=== PATIENT | male | born 1940 | race Caucasian/White ===

== ENCOUNTER 2016-11-15 00:02 | Inpatient (IN) | payer MEDICARE ==
[~2016-11-15] VITALS: Ht 165.1 cm; Wt 88.1 kg
[2016-11-15] MEDS ORDERED: ASPIRIN 81MG TABLET PO ONE (01:00)
[2016-11-15 01:18] LABS: BASOPHILS % 0.6 % (0.0-2.0); EOSINOPHILS % 3.4 % (0.0-5.0); HEMATOCRIT. 30.4 % (42.0-52.0); HEMOGLOBIN. 10.3 g/dL (14.0-18.0); MEAN CORPUSCULAR VOLUME 94.4 fL (80.0-94.0); PLATELET 162 x1000/uL (130-400); RED BLOOD CELL COUNT 3.22 mill/uL (4.7-6.1)
[2016-11-15 01:29] LABS: D-DIMER 0.93 mg/L FEU (<0.50); INR 1.1; PARTIAL THROMBOPLASTIN TIME 25.1 sec (23.4-31.0); PROTHROMBIN TIME 11.1 sec (9.4-11.6)
[2016-11-15 01:34] LABS: CARBON DIOXIDE 24 mEq/L (21-32); CHLORIDE 107 mEq/L (98-107); ETHANOL BLOOD < 10 mg/dL; TROPONIN I < 0.02 ng/mL (0.00-0.04)
[2016-11-15 05:02] LABS: *AMPHETAMINES SCREEN URINE NEGATIVE (NEGATIVE); *BARBITURATES SCREEN URINE NEGATIVE (NEGATIVE); *BENZODIAZEPINES SCREEN URINE NEGATIVE (NEGATIVE); *COCAINE SCREEN URINE NEGATIVE (NEGATIVE); CANNABINOID URINE SCREEN NEGATIVE (NEGATIVE); METHADONE URINE SCREEN NEGATIVE (NEGATIVE); OPIATES URINE SCREEN NEGATIVE (NEGATIVE); PHENCYCLIDINE URINE SCREEN NEGATIVE (NEGATIVE)
[2016-11-15] MEDS ORDERED: CHOL100046 PO (11:11)
[2016-11-15] MEDS ORDERED: CARB200T PO (11:11)
[2016-11-15] MEDS ORDERED: DILT120C11 MT (11:11)
[2016-11-15] MEDS ORDERED: CLOP75TA16 PO (11:11)
[2016-11-15 11:30] VITALS: BP 165/93
[2016-11-15] MEDS ORDERED: ONDANSETRON HCL 4MG/2ML VIAL IV PRN (11:30)
[2016-11-15] MEDS ORDERED: IPRATROPIUM/ALBUTEROL 0.5-3(2.5)MG/3ML NEB INH PRN (11:30)
[2016-11-15] MEDS ORDERED: HYDROCODONE/ACETAMINOPHEN 5/325MG TABLET PO PRN (11:30)
[2016-11-15] MEDS ORDERED: ACETAMINOPHEN 325MG TABLET PO PRN (11:30)
[2016-11-15] MEDS ORDERED: LORAZEPAM 2MG/ML CPJ IV PRN (11:30)
[2016-11-15] MEDS ORDERED: MORPHINE SULFATE 4 MG/ML CPJ (NOT FOR IM USE) IV PRN (11:30)
[2016-11-15 12:00] VITALS: BP 165/93
[2016-11-15] MEDS ORDERED: CLONIDINE 0.1MG TABLET PO PRN (12:30)
[2016-11-15] MEDS: ENOXAPARIN 30MG/0.3ML SYR SUBCUT SCH (12:33)
[2016-11-15] MEDS: CLOPIDOGREL 75MG TABLET PO SCH (13:00)
[2016-11-15] MEDS ORDERED: LOSA25TA12 PO (13:43)
[2016-11-15] MEDS ORDERED: DOXA2TAB2 PO (13:43)
[2016-11-15] MEDS ORDERED: DOXA1TAB PO (13:46)
[2016-11-15] MEDS: LOSARTAN POTASSIUM 25 MG TABLET PO SCH (13:53)
[2016-11-15 14:44] LABS: CREATINE KINASE 90 IU/L (39-308); CREATINE KINASE MB FRACTION 1.6 ng/mL (0.5-3.6); PHOSPHORUS 3.6 mg/dL (2.5-4.9); TROPONIN I < 0.02 ng/mL (0.00-0.04)
[2016-11-15 16:45] VITALS: BP 166/83
[2016-11-15 20:00] VITALS: BP 142/76
[2016-11-15 23:29] LABS: CREATINE KINASE 100 IU/L (39-308)
[2016-11-15 23:30] LABS: CREATINE KINASE MB FRACTION 1.8 ng/mL (0.5-3.6); TROPONIN I < 0.02 ng/mL (0.00-0.04)
[2016-11-16 04:00] VITALS: BP 149/80
[2016-11-16 06:43] LABS: BASOPHILS % 0.3 % (0.0-2.0); EOSINOPHILS % 2.9 % (0.0-5.0); HEMATOCRIT. 32.7 % (42.0-52.0); HEMOGLOBIN. 11.1 g/dL (14.0-18.0); LYMPHOCYTES % 16.2 % (20.0-50.0); MEAN CORPUSCULAR HEMOGLOBIN 32.1 pg (28.0-32.0); MEAN CORPUSCULAR VOLUME 95.1 fL (80.0-94.0); MEAN PLATELET VOLUME 8.8 fl (7.4-10.4); NEUTROPHILS % 74.6 % (40.0-76.0); PLATELET 183 x1000/uL (130-400); RED BLOOD CELL COUNT 3.44 mill/uL (4.7-6.1); RED CELL DISTRIBUTION WIDTH 14.1 % (11.6-14.6)
[2016-11-16 07:25] LABS: PHOSPHORUS 3.4 mg/dL (2.5-4.9)
[2016-11-16 08:31] VITALS: BP 138/70
[2016-11-16] MEDS: CARBAMAZEPINE 200MG TABLET PO SCH (08:34)
[2016-11-16] MEDS: MULTIVITAMINS,THER W-MINERALS TABLET PO SCH (08:34)
[2016-11-16] MEDS: CLOPIDOGREL 75MG TABLET PO SCH (08:34)
[2016-11-16] MEDS: DILTIAZEM HCL 120MG CAPSULE CD 24HR PO SCH (08:35)
[2016-11-16] MEDS: LOSARTAN POTASSIUM 25 MG TABLET PO SCH (08:36)
[2016-11-16] MEDS: THIAMINE HCL 100MG TABLET PO SCH (08:37)
[2016-11-16] MEDS: ENOXAPARIN 30MG/0.3ML SYR SUBCUT SCH (08:37)
[2016-11-16 09:39] LABS: GLUCOSE URINE NEGATIVE (NEGATIVE); KETONES URINE NEGATIVE (NEGATIVE); LEUKOCYTE ESTERASE URINE NEGATIVE (NEGATIVE); NITRITE URINE NEGATIVE (NEGATIVE); OCCULT BLOOD URINE NEGATIVE (NEGATIVE); PH URINE 5.5 (4.5-8.0); PROTEIN URINE 2+ (NEGATIVE); SPECIFIC GRAVITY URINE 1.015 (1.005-1.030); UROBILINOGEN URINE 0.2 E.U./dL (0.2-1.0)
[2016-11-16 09:40] LABS: CLARITY URINE CLEAR (CLEAR); COLOR URINE YELLOW (YELLOW)
[2016-11-16 12:19] VITALS: BP 133/79
[2016-11-16] MEDS ORDERED: REGADENOSON 0.4 MG/5 ML IV NR (15:00)
[2016-11-16 16:17] VITALS: BP 142/85
[2016-11-16 20:33] LABS: T4 FREE 0.94 ng/dL (0.76-1.46)
[2016-11-16 23:51] VITALS: BP 148/75
[2016-11-17 04:13] VITALS: BP 148/83
[2016-11-17] MEDS ORDERED: ASPIRIN 81MG TABLET PO SCH (09:00)
[2016-11-17] MEDS ORDERED: REGADENOSON 0.4 MG/5 ML IV ONE (09:11)
[2016-11-17 09:50] VITALS: BP 159/89
[2016-11-17] MEDS: LOSARTAN POTASSIUM 25 MG TABLET PO SCH (10:04)
[2016-11-17] MEDS: CARBAMAZEPINE 200MG TABLET PO SCH (10:04)
[2016-11-17] MEDS: THIAMINE HCL 100MG TABLET PO SCH (10:04)
[2016-11-17] MEDS: DILTIAZEM HCL 120MG CAPSULE CD 24HR PO SCH (10:05)
[2016-11-17] MEDS: ENOXAPARIN 30MG/0.3ML SYR SUBCUT SCH (10:09)
[2016-11-17] MEDS: CLOPIDOGREL 75MG TABLET PO SCH (10:09)
[2016-11-17] MEDS: MULTIVITAMINS,THER W-MINERALS TABLET PO SCH (10:10)
[2016-11-17 12:00] VITALS: BP 135/71
[2016-11-17 15:03] VITALS: BP 132/75
== END 2016-11-17 15:35 | disposition home or self-care (01) | DRG 302 ==
LOC: ER 00:03 → 8WST 02:29 → ENRESERV 08:53
PROVIDERS: ADMIT Internal Medicine; ATTEND Internal Medicine
DX: I25.10 Atherosclerotic heart disease of native coronary artery without angina pectoris (principal); N17.1 Acute kidney failure with acute cortical necrosis; E11.22 Type 2 diabetes mellitus with diabetic chronic kidney disease; E66.01 Morbid (severe) obesity due to excess calories; C61 Malignant neoplasm of prostate; D64.9 Anemia, unspecified; E78.00 Pure hypercholesterolemia, unspecified; E78.5 Hyperlipidemia, unspecified; I12.9 Hypertensive chronic kidney disease with stage 1 through stage 4 chronic kidney disease, or unspecified chronic kidney disease; N18.9 Chronic kidney disease, unspecified; Z95.5 Presence of coronary angioplasty implant and graft; I25.2 Old myocardial infarction; Z88.0 Allergy status to penicillin; Z88.8 Allergy status to other drugs, medicaments and biological substances; Z68.32 Body mass index [BMI] 32.0-32.9, adult
CPT/HCPCS: 36415; 71010; 78452; 80048; 80053; 80061; 80305; 81001; 82040; 82550; 82553; 83036; 83690; 83735; 83880; 84100; 84439; 84443; 84484; 85025; 85379; 85610; 85730; 93005; 93017; 93306; 93970; 96372; 99285; A9500; G0482; J1650; J2785

== ENCOUNTER 2017-07-17 09:45 | Emergency (ER) | payer MEDICARE ==
[~2017-07-17] VITALS: Ht 165.1 cm; Wt 86.4 kg
[~2017-07-17 09:45] MED LIST: CALC0.253 PO; CARB200T PO; CHOL100046 PO; CLOP75TA16 PO; DILT120C11 MT; DOXA1TAB PO; LOSA25TA12 PO
[2017-07-17] MEDS ORDERED: CYCLOBENZAPRINE 10MG TABLET PO ONE (10:45)
[2017-07-17] MEDS ORDERED: KETOROLAC 60MG/2ML VIAL IM ONE (10:45)
[2017-07-17] MEDS ORDERED: MORPHINE SULFATE 10 MG/ML CPJ IM ONE (11:45)
[2017-07-17 11:52] LABS: HEMATOCRIT. 31.5 % (42.0-52.0); HEMOGLOBIN. 10.5 g/dL (14.0-18.0); MEAN CORPUSCULAR HEMOGLOBIN 31.8 pg (28.0-32.0); MEAN CORPUSCULAR VOLUME 95.9 fL (80.0-94.0); PLATELET 234 x1000/uL (130-400); RED BLOOD CELL COUNT 3.28 mill/uL (4.7-6.1); RED CELL DISTRIBUTION WIDTH 14.2 % (11.6-14.6)
[2017-07-17 11:59] LABS: CHLORIDE 108 mEq/L (98-107)
[2017-07-17 12:45] LABS: CLARITY URINE CLEAR (CLEAR); COLOR URINE YELLOW (YELLOW); KETONES URINE NEGATIVE (NEGATIVE); LEUKOCYTE ESTERASE URINE NEGATIVE (NEGATIVE); NITRITE URINE NEGATIVE (NEGATIVE); OCCULT BLOOD URINE TRACE (NEGATIVE); PROTEIN URINE 3+ (NEGATIVE); SPECIFIC GRAVITY URINE 1.013 (1.005-1.030); UROBILINOGEN URINE 0.2 E.U./dL (0.2-1.0)
[2017-07-17 12:51] LABS: PLATELET ESTIMATE NORMAL
[2017-07-17 14:27] VITALS: BP 131/74
== END 2017-07-17 14:28 | disposition home or self-care (01) ==
LOC: ER 09:45
DX: M54.5 Low back pain (principal); I25.2 Old myocardial infarction; Z88.5 Allergy status to narcotic agent; Z79.01 Long term (current) use of anticoagulants
CPT/HCPCS: 36415; 72131; 72148; 80053; 81003; 85025; 93005; 96372; 99285; J1885

== ENCOUNTER 2017-07-30 08:17 | Emergency (ER) | payer MEDICARE ==
[~2017-07-30] VITALS: Ht 165.1 cm; Wt 81.0 kg
[~2017-07-30 08:17] MED LIST changes: +DOXA1TAB2 PO; +LOVA10TA PO; +MULT-1146 PO
[2017-07-30 08:37] VITALS: BP 132/78
== END 2017-07-30 14:56 | disposition left against medical advice (07) ==
LOC: ER 10:00
DX: Z53.21 Procedure and treatment not carried out due to patient leaving prior to being seen by health care provider (principal)

== ENCOUNTER 2018-04-04 06:52 | Emergency (ER) | payer MEDICARE ==
[~2018-04-04] VITALS: Ht 165.1 cm; Wt 88.0 kg
[2018-04-04] MEDS ORDERED: HYDROCODONE/ACETAMINOPHEN 10/325MG TABLET PO ONE (10:30)
[2018-04-04 11:22] LABS: BASOPHILS % 0.6 % (0.0-2.0); EOSINOPHILS % 1.2 % (0.0-5.0); HEMATOCRIT. 33.7 % (42.0-52.0); HEMOGLOBIN. 11.1 g/dL (14.0-18.0); LYMPHOCYTES % 9.4 % (20.0-50.0); MEAN CORPUSCULAR HEMOGLOBIN 31.8 pg (28.0-32.0); MEAN CORPUSCULAR VOLUME 96.7 fL (80.0-94.0); MEAN PLATELET VOLUME 8.4 fl (7.4-10.4); MONOCYTES % 8.2 % (2.0-8.0); NEUTROPHILS % 80.6 % (40.0-76.0); PLATELET 182 x1000/uL (130-400); RED BLOOD CELL COUNT 3.48 mill/uL (4.7-6.1); RED CELL DISTRIBUTION WIDTH 14.5 % (11.6-14.6)
[2018-04-04 11:28] LABS: CHLORIDE 113 mEq/L (98-107); PROTHROMBIN TIME 10.3 sec (9.1-11.1)
[2018-04-04 12:13] LABS: CLARITY URINE CLEAR (CLEAR); COLOR URINE YELLOW (YELLOW); KETONES URINE NEGATIVE (NEGATIVE); LEUKOCYTE ESTERASE URINE 1+ (NEGATIVE); NITRITE URINE NEGATIVE (NEGATIVE); OCCULT BLOOD URINE NEGATIVE (NEGATIVE); PROTEIN URINE 3+ (NEGATIVE); SPECIFIC GRAVITY URINE 1.014 (1.005-1.030); UROBILINOGEN URINE 0.2 E.U./dL (0.2-1.0)
[2018-04-04] MEDS ORDERED: LIDOCAINE HCL 1% 20ML VIAL (Pyxis) INJ INFIL ONE (13:30)
[2018-04-04] MEDS ORDERED: CEFTRIAXONE SODIUM 1 G/VIAL IM ONE (13:30)
[2018-04-04 14:35] VITALS: BP 138/87
== END 2018-04-04 14:36 | disposition home or self-care (01) ==
LOC: ER 06:52
DX: N12 Tubulo-interstitial nephritis, not specified as acute or chronic (principal)
CPT/HCPCS: 36415; 76770; 80053; 81003; 83690; 85025; 85610; 87086; 96372; 99284; J0696; J3490

== ENCOUNTER → 2018-12-03 | Outpatient (CLI) | payer MEDICARE ==
[~2018-12-03] MED LIST changes: -CLOP75TA16 PO; +CLOP75TA4 PO; -LOSA25TA12 PO; +LOSA25TA26 PO
== END | disposition home or self-care (01) ==
LOC: US 13:40
PROVIDERS: ATTEND Internal Medicine Nephrology
DX: N28.1 Cyst of kidney, acquired (principal); N40.0 Benign prostatic hyperplasia without lower urinary tract symptoms
CPT/HCPCS: 76770

== ENCOUNTER 2019-04-30 20:28 | Emergency (ER) | payer MEDICARE ==
[~2019-04-30] VITALS: Ht 165.1 cm; Wt 85.0 kg
[2019-04-30] MEDS ORDERED: ACETAMINOPHEN 325MG TABLET PO ONE (23:15)
[2019-04-30 23:38] LABS: CHLORIDE 111 mEq/L (98-107)
[2019-04-30 23:45] LABS: BASOPHILS % 0.4 % (0.0-2.0); EOSINOPHILS % 2.7 % (0.0-5.0); HEMATOCRIT. 31.3 % (42.0-52.0); HEMOGLOBIN. 10.5 g/dL (14.0-18.0); MEAN CORPUSCULAR HEMOGLOBIN 32.4 pg (28.0-32.0); MEAN CORPUSCULAR VOLUME 96.7 fL (80.0-94.0); MEAN PLATELET VOLUME 8.8 fl (7.4-10.4); MONOCYTES % 6.6 % (2.0-8.0); NEUTROPHILS % 75.3 % (40.0-76.0); PLATELET 163 x1000/uL (130-400); RED BLOOD CELL COUNT 3.23 mill/uL (4.7-6.1); RED CELL DISTRIBUTION WIDTH 14.5 % (11.6-14.6)
[2019-05-01 00:50] VITALS: BP 151/75
== END 2019-05-01 02:16 | disposition home or self-care (01) ==
LOC: ER 20:28
DX: B34.9 Viral infection, unspecified (principal); N28.9 Disorder of kidney and ureter, unspecified; R07.89 Other chest pain; E78.00 Pure hypercholesterolemia, unspecified; I11.9 Hypertensive heart disease without heart failure; I25.2 Old myocardial infarction; I25.10 Atherosclerotic heart disease of native coronary artery without angina pectoris; Z98.890 Other specified postprocedural states; Z90.89 Acquired absence of other organs; Z79.899 Other long term (current) drug therapy; Z88.4 Allergy status to anesthetic agent
CPT/HCPCS: 36415; 71045; 80053; 83880; 84484; 85025; 93005; 99285

== ENCOUNTER 2019-09-26 23:39 | Emergency (ER) | payer MEDICARE ==
[~2019-09-26] VITALS: Ht 165.1 cm; Wt 83.0 kg
[2019-09-27 00:15] VITALS: BP 154/75
== END 2019-09-27 00:15 | disposition home or self-care (01) ==
LOC: ER 23:39
DX: T83.038A Leakage of other urinary catheter, initial encounter (principal); Y82.8 Other medical devices associated with adverse incidents; Y92.89 Other specified places as the place of occurrence of the external cause; I10 Essential (primary) hypertension; I25.2 Old myocardial infarction; E78.00 Pure hypercholesterolemia, unspecified
CPT/HCPCS: 99284

== ENCOUNTER 2019-10-07 02:25 | Emergency (ER) | payer MEDICARE ==
[~2019-10-07] VITALS: Ht 165.1 cm; Wt 82.0 kg
[2019-10-07 03:48] VITALS: BP 147/82
[2019-10-07] MEDS ORDERED: DOXA2TAB2 MT (14:36)
[2019-10-08] MEDS ORDERED: TAMSULOSIN PO (22:46)
== END 2019-10-07 04:02 | disposition home or self-care (01) ==
LOC: ER 02:25
DX: R33.9 Retention of urine, unspecified (principal); I10 Essential (primary) hypertension; I25.2 Old myocardial infarction; E78.00 Pure hypercholesterolemia, unspecified; Z98.890 Other specified postprocedural states; Z90.89 Acquired absence of other organs; Z79.899 Other long term (current) drug therapy
CPT/HCPCS: 51702; 93005; 99283; 99284

== ENCOUNTER 2019-10-07 09:11 | Inpatient (IN) | payer MEDICARE ==
[~2019-10-07] VITALS: Ht 165.1 cm; Wt 82.1 kg
[2019-10-07 11:08] LABS: BASOPHILS % 0.4 % (0.0-2.0); EOSINOPHILS % 1.4 % (0.0-5.0); HEMATOCRIT. 28.9 % (42.0-52.0); HEMOGLOBIN. 9.5 g/dL (14.0-18.0); LYMPHOCYTES % 7.5 % (20.0-50.0); MEAN CORPUSCULAR HEMOGLOBIN 31.7 pg (28.0-32.0); MEAN CORPUSCULAR VOLUME 96.6 fL (80.0-94.0); MEAN PLATELET VOLUME 7.5 fl (7.4-10.4); NEUTROPHILS % 84.7 % (40.0-76.0); PLATELET 208 x1000/uL (130-400); RED CELL DISTRIBUTION WIDTH 14.2 % (11.6-14.6)
[2019-10-07 11:14] LABS: CHLORIDE 110 mEq/L (98-107)
[2019-10-07 11:18] LABS: INR 1.1; PROTHROMBIN TIME 11.1 sec (9.6-11.0)
[2019-10-07 11:23] LABS: KETONES URINE NEGATIVE (NEGATIVE); LEUKOCYTE ESTERASE URINE 2+ (NEGATIVE); NITRITE URINE NEGATIVE (NEGATIVE); OCCULT BLOOD URINE 3+ (NEGATIVE); PH URINE 6.5 (4.5-8.0); PROTEIN URINE 3+ (NEGATIVE); SPECIFIC GRAVITY URINE 1.018 (1.005-1.030); UROBILINOGEN URINE 0.2 E.U./dL (0.2-1.0)
[2019-10-07 11:28] LABS: COLOR URINE BLOODY (YELLOW)
[2019-10-07 11:29] LABS: CLARITY URINE TURBID (CLEAR)
[2019-10-07] MEDS ORDERED: CEFTRIAXONE 1 G PREMIX 50 ML IV ONE (12:15)
[2019-10-07 13:30] VITALS: BP_SYST 124; BP_DIAS 70; BP_DIAS 92
[2019-10-07] MEDS ORDERED: DOXA2TAB2 MT (14:36)
[2019-10-07 14:56] VITALS: BP 124/70
[2019-10-07 16:00] VITALS: BP 143/70
[2019-10-07 20:00] VITALS: BP 132/72
[2019-10-07] MEDS ORDERED: DOXAZOSIN MESYLATE 2MG TABLET PO SCH (21:00)
[2019-10-07] MEDS ORDERED: NON FORMULARY PATIENT HOME MED PO SCH (21:00)
[2019-10-07] MEDS: CARBAMAZEPINE 100MG TABLET CHEW PO SCH (21:47)
[2019-10-07] MEDS: LOSARTAN POTASSIUM 25 MG TABLET PO SCH (21:47)
[2019-10-07] MEDS: DILTIAZEM HCL 120MG CAPSULE CD 24HR PO SCH (21:48)
[2019-10-07] MEDS: MULTIVITAMINS,THER W-MINERALS TABLET PO SCH (21:49)
[2019-10-07] MEDS: ATORVASTATIN CALCIUM 10MG TABLET PO SCH (21:49)
[2019-10-08] VITALS: BP 141/87
[2019-10-08 04:00] VITALS: BP 144/77
[2019-10-08 08:50] LABS: BASOPHILS % 0.4 % (0.0-2.0); EOSINOPHILS % 2.4 % (0.0-5.0); HEMATOCRIT. 27.8 % (42.0-52.0); HEMOGLOBIN. 9.2 g/dL (14.0-18.0); LYMPHOCYTES % 9.3 % (20.0-50.0); MEAN CORPUSCULAR VOLUME 96.9 fL (80.0-94.0); MEAN PLATELET VOLUME 7.4 fl (7.4-10.4); MONOCYTES % 7.8 % (2.0-8.0); NEUTROPHILS % 80.1 % (40.0-76.0); PLATELET 197 x1000/uL (130-400); RED BLOOD CELL COUNT 2.87 mill/uL (4.7-6.1); RED CELL DISTRIBUTION WIDTH 14.1 % (11.6-14.6)
[2019-10-08] MEDS: LOSARTAN POTASSIUM 25 MG TABLET PO SCH (09:00)
[2019-10-08] MEDS: CARBAMAZEPINE 100MG TABLET CHEW PO SCH (09:00)
[2019-10-08] MEDS: DILTIAZEM HCL 120MG CAPSULE CD 24HR PO SCH (09:00)
[2019-10-08] MEDS: MULTIVITAMINS,THER W-MINERALS TABLET PO SCH (10:02)
[2019-10-08 12:00] VITALS: BP 139/72
[2019-10-08 20:00] VITALS: BP 150/70
[2019-10-08] MEDS ORDERED: LOSARTAN POTASSIUM 25 MG TABLET PO SCH (21:30)
[2019-10-08] MEDS ORDERED: DILTIAZEM HCL 120MG CAPSULE CD 24HR PO SCH (21:30)
[2019-10-08] MEDS ORDERED: CARBAMAZEPINE 100MG TABLET CHEW PO SCH (21:30)
[2019-10-08] MEDS: ATORVASTATIN CALCIUM 10MG TABLET PO SCH (22:03)
[2019-10-08] MEDS ORDERED: TAMSULOSIN PO (22:46)
[2019-10-08] MEDS ORDERED: TAMSULOSIN 0.4 MG PO SCH (23:00)
[2019-10-08] MEDS ORDERED: TAMSULOSIN HCL 0.4MG SR CAPSULE PO SCH (23:00)
[2019-10-09] VITALS: BP 185/98
[2019-10-09 04:00] VITALS: BP 128/74
[2019-10-09 08:00] VITALS: BP 129/73
[2019-10-09] MEDS: MULTIVITAMINS,THER W-MINERALS TABLET PO SCH (08:52)
[2019-10-09] MEDS ORDERED: DOXAZOSIN MESYLATE 2MG TABLET PO SCH (09:00)
[2019-10-09 12:00] VITALS: BP 139/73
== END 2019-10-09 14:30 | disposition home or self-care (01) | DRG 690 ==
LOC: ER 09:11 → 6EST 11:17 → EDBEDREQ 11:20 → ENRESERV 12:44
PROVIDERS: ADMIT Internal Medicine; ATTEND Internal Medicine
DX: N39.0 Urinary tract infection, site not specified (principal); E87.2 Acidosis; C90.00 Multiple myeloma not having achieved remission; N40.1 Benign prostatic hyperplasia with lower urinary tract symptoms; I25.10 Atherosclerotic heart disease of native coronary artery without angina pectoris; I12.9 Hypertensive chronic kidney disease with stage 1 through stage 4 chronic kidney disease, or unspecified chronic kidney disease; N13.9 Obstructive and reflux uropathy, unspecified; D64.9 Anemia, unspecified; N28.1 Cyst of kidney, acquired; N18.3 Chronic kidney disease, stage 3 (moderate); E66.9 Obesity, unspecified; N40.2 Nodular prostate without lower urinary tract symptoms; N32.89 Other specified disorders of bladder; Z79.02 Long term (current) use of antithrombotics/antiplatelets; Z79.82 Long term (current) use of aspirin; Z95.5 Presence of coronary angioplasty implant and graft; Z79.899 Other long term (current) drug therapy; Z88.8 Allergy status to other drugs, medicaments and biological substances
CPT/HCPCS: 36415; 74176; 80048; 80053; 81003; 85025; 86850; 86900; 93005; 99285; J0696

== ENCOUNTER 2019-10-09 18:31 | Emergency (ER) | payer MEDICARE ==
[~2019-10-09] VITALS: Ht 165.1 cm; Wt 82.0 kg
[~2019-10-09 18:31] MED LIST changes: +DOXA2TAB2 MT; +TAMSULOSIN PO
[2019-10-09 18:36] VITALS: BP 120/65
== END 2019-10-09 19:30 | disposition left against medical advice (07) ==
LOC: ER 18:31
DX: Z53.21 Procedure and treatment not carried out due to patient leaving prior to being seen by health care provider (principal)
CPT/HCPCS: 93005

== ENCOUNTER 2019-10-16 06:50 | Emergency (ER) | payer MEDICARE ==
[~2019-10-16] VITALS: Ht 165.1 cm; Wt 82.0 kg
[2019-10-16 08:33] LABS: CLARITY URINE CLEAR (CLEAR); COLOR URINE YELLOW (YELLOW); KETONES URINE NEGATIVE (NEGATIVE); LEUKOCYTE ESTERASE URINE 1+ (NEGATIVE); NITRITE URINE NEGATIVE (NEGATIVE); OCCULT BLOOD URINE 1+ (NEGATIVE); PROTEIN URINE 3+ (NEGATIVE); SPECIFIC GRAVITY URINE 1.016 (1.005-1.030); UROBILINOGEN URINE 0.2 E.U./dL (0.2-1.0)
[2019-10-16 09:43] VITALS: BP 138/76
== END 2019-10-16 09:44 | disposition home or self-care (01) ==
LOC: ER 06:50
DX: T83.021A Displacement of indwelling urethral catheter, initial encounter (principal); Y82.8 Other medical devices associated with adverse incidents; Y92.89 Other specified places as the place of occurrence of the external cause; I10 Essential (primary) hypertension; E78.00 Pure hypercholesterolemia, unspecified; Z95.5 Presence of coronary angioplasty implant and graft
CPT/HCPCS: 51702; 81003; 99284

== ENCOUNTER 2019-12-03 23:10 | Emergency (ER) | payer MEDICARE ==
[~2019-12-03] VITALS: Ht 165.1 cm; Wt 83.7 kg
[2019-12-04 03:44] VITALS: BP 143/75
== END 2019-12-04 03:46 | disposition home or self-care (01) ==
LOC: ER 23:10
DX: R33.9 Retention of urine, unspecified (principal); I10 Essential (primary) hypertension; E78.00 Pure hypercholesterolemia, unspecified
CPT/HCPCS: 93005; 99283; A4315

== ENCOUNTER 2020-01-12 05:15 | Inpatient (IN) | payer MEDICARE ==
[~2020-01-12] VITALS: Ht 165.1 cm; Wt 81.6 kg
[~2020-01-12 05:15] MED LIST changes: -ASPI-1497 PO; -TAMS-11 PO
[2020-01-12 06:05] LABS: HEMATOCRIT 30.9 % (42.0-52.0); HEMOGLOBIN 10.1 g/dL (14.0-18.0)
[2020-01-12 06:16] LABS: INR 1.1; PARTIAL THROMBOPLASTIN TIME 30.2 sec (23.4-31.0); PROTHROMBIN TIME 11.1 sec (9.6-11.0)
[2020-01-12] MEDS ORDERED: LACTATED RINGERS 1,000 ML IV SCH (06:30)
[2020-01-12] MEDS ORDERED: PROPOFOL 200MG/20ML VIAL IV ONE (07:25)
[2020-01-12] MEDS ORDERED: FENTANYL CITRATE/PF 50MCG/ML 2ML VIAL ONE (07:25)
[2020-01-12] MEDS ORDERED: MIDAZOLAM HCL 2 MG/2 ML VIAL ONE (07:25)
[2020-01-12] MEDS ORDERED: DEXAMETHASONE 4MG/ML 1ML VIAL ONE (07:36)
[2020-01-12] MEDS ORDERED: ASPI-1497 PO (07:53)
[2020-01-12] MEDS ORDERED: TAMS-11 PO (07:53)
[2020-01-12] MEDS ORDERED: LABETALOL 5MG/ML SYR 20 MG/4 ML SYRINGE IV PRN (08:00)
[2020-01-12] MEDS ORDERED: MEPERIDINE HCL/PF 25MG/ML CPJ IV PRN (08:00)
[2020-01-12] MEDS ORDERED: HYDROMORPHONE HCL/PF 2MG/ML CPJ IV PRN (08:00)
[2020-01-12] MEDS ORDERED: ONDANSETRON HCL 4MG/2ML INJ IV PRN (08:00)
[2020-01-12] MEDS ORDERED: ONDANSETRON HCL 4MG/2ML INJ ONE (08:48)
[2020-01-12] MEDS ORDERED: GENTAMICIN SULF 40MG/ML 2ML VIAL ONE (08:48)
[2020-01-12] MEDS ORDERED: LIDOCAINE HCL 1% 20ML VIAL (Pyxis) INJ ONE (08:49)
[2020-01-12] MEDS ORDERED: SODIUM CHLORIDE 0.9% 10ML VIAL ONE (08:49)
[2020-01-12] MEDS ORDERED: CEFAZOLIN SODIUM 1000MG/VIAL ONE (08:49)
[2020-01-12] MEDS ORDERED: HYDROCODONE/ACETAMINOPHEN 5/325MG TABLET PO PRN (10:00)
[2020-01-12 10:57] LABS: HEMATOCRIT. 28.2 % (42.0-52.0); HEMOGLOBIN. 9.1 g/dL (14.0-18.0); MEAN CORPUSCULAR HEMOGLOBIN 31.1 pg (28.0-32.0); MEAN CORPUSCULAR VOLUME 96.1 fL (80.0-94.0); MEAN PLATELET VOLUME 8.6 fl (7.4-10.4); PLATELET 201 x1000/uL (130-400); RED BLOOD CELL COUNT 2.93 mill/uL (4.7-6.1); RED CELL DISTRIBUTION WIDTH 15.5 % (11.6-14.6)
[2020-01-12 11:30] VITALS: BP 117/71
[2020-01-12 11:42] LABS: PLATELET ESTIMATE NORMAL
[2020-01-12 12:00] VITALS: BP 117/71
[2020-01-12 16:00] VITALS: BP 121/71
[2020-01-12] MEDS ORDERED: CEFAZOLIN SODIUM 1000MG/VIAL IV SCH (16:00)
[2020-01-12 16:05] LABS: HEMATOCRIT. 24.7 % (42.0-52.0); HEMOGLOBIN. 8.3 g/dL (14.0-18.0); MEAN CORPUSCULAR HEMOGLOBIN 32.3 pg (28.0-32.0); MEAN CORPUSCULAR VOLUME 96.1 fL (80.0-94.0); MEAN PLATELET VOLUME 8.4 fl (7.4-10.4); PLATELET 196 x1000/uL (130-400); RED BLOOD CELL COUNT 2.57 mill/uL (4.7-6.1); RED CELL DISTRIBUTION WIDTH 15.3 % (11.6-14.6)
[2020-01-12 17:30] LABS: PLATELET ESTIMATE NORMAL
[2020-01-12 20:00] VITALS: BP 123/67
[2020-01-12] MEDS: CEFAZOLIN 1000MG PREMIX 50 ML IV SCH (21:34)
[2020-01-13] VITALS (12 sets, daily range): BP systolic 95–142; BP diastolic 49–94
[2020-01-13] MEDS: DEXT 5%/0.45% NACL 1000ML 1,000 ML IV SCH ×2 (01:05→18:23)
[2020-01-13 08:31] LABS: BASOPHILS % 0.2 % (0.0-2.0); EOSINOPHILS % 1.1 % (0.0-5.0); LYMPHOCYTES % 7.8 % (20.0-50.0); MEAN CORPUSCULAR HEMOGLOBIN 30.8 pg (28.0-32.0); MONOCYTES % 9.9 % (2.0-8.0); PLATELET 167 x1000/uL (130-400); RED BLOOD CELL COUNT 2.22 mill/uL (4.7-6.1); RED CELL DISTRIBUTION WIDTH 14.6 % (11.6-14.6)
[2020-01-13] MEDS: CEFAZOLIN 1000MG PREMIX 50 ML IV SCH ×2 (08:39→20:26)
[2020-01-13 08:46] LABS: HEMATOCRIT. 21.1 % (42.0-52.0); HEMOGLOBIN. 6.9 g/dL (14.0-18.0)
[2020-01-13 19:08] LABS: HEMATOCRIT 24.3 % (42.0-52.0); HEMOGLOBIN 7.9 g/dL (14.0-18.0)
[2020-01-14] VITALS (10 sets, daily range): BP systolic 101–148; BP diastolic 54–76
[2020-01-14 07:13] LABS: HEMATOCRIT 26.6 % (42.0-52.0); HEMOGLOBIN 8.8 g/dL (14.0-18.0)
== END 2020-01-14 15:45 | disposition home or self-care (01) | DRG 714 ==
LOC: OR 05:15 → 6EST 05:16
PROVIDERS: ADMIT Urology; ATTEND Urology
PROC: 0VT08ZZ Resection of Prostate, Via Natural or Artificial Opening Endoscopic (ICD-10-PCS; principal; 2020-01-12)
PROC: 30233N1 Transfusion of Nonautologous Red Blood Cells into Peripheral Vein, Percutaneous Approach (ICD-10-PCS; 2020-01-12)
DX: N40.1 Benign prostatic hyperplasia with lower urinary tract symptoms (principal); R33.8 Other retention of urine; Z79.899 Other long term (current) drug therapy
CPT/HCPCS: 36415; 80048; 85014; 85018; 85025; 86850; 86900; 86920; 87426; 88305; J0690; J1100; J1170; J1580; J2175; J2250; J2405; J2704; J3010; J3490; P9016

== ENCOUNTER → 2020-01-12 | Outpatient (CLI) | payer MEDICARE ==
[~2020-01-12] MED LIST changes: +ASPI-1497 PO; +TAMS-11 PO
== END | disposition home or self-care (01) ==
LOC: LAB 05:09
PROVIDERS: ATTEND Urology
DX: Z01.812 Encounter for preprocedural laboratory examination (principal); Z20.828 Contact with and (suspected) exposure to other viral communicable diseases
CPT/HCPCS: 87426

== ENCOUNTER 2020-02-14 12:04 | Inpatient (IN) | payer MEDICARE ==
[~2020-02-14] VITALS: Ht 165.1 cm; Wt 79.4 kg
[~2020-02-14 12:04] MED LIST changes: +ASPI-1497 PO; -CALC0.253 PO; -CHOL100046 PO; -DOXA1TAB2 PO; -DOXA2TAB2 MT; -LOVA10TA PO; -MULT-1146 PO; +TAMS-11 PO; -TAMSULOSIN PO
[2020-02-14] MEDS ORDERED: MORPHINE SULFATE 4 MG/ML CPJ (NOT FOR IM USE) IV STA (12:49)
[2020-02-14] MEDS ORDERED: ONDANSETRON HCL 4MG/2ML INJ IV STA (12:49)
[2020-02-14 13:10] LABS: HEMATOCRIT. 31.2 % (42.0-52.0); HEMOGLOBIN. 10.1 g/dL (14.0-18.0); MEAN CORPUSCULAR HEMOGLOBIN 30.5 pg (28.0-32.0); MEAN CORPUSCULAR VOLUME 93.7 fL (80.0-94.0); MEAN PLATELET VOLUME 8.9 fl (7.4-10.4); PLATELET 170 x1000/uL (130-400); RED BLOOD CELL COUNT 3.33 mill/uL (4.7-6.1); RED CELL DISTRIBUTION WIDTH 17.2 % (11.6-14.6)
[2020-02-14 13:17] LABS: CHLORIDE 112 mEq/L (98-107)
[2020-02-14 13:32] LABS: PLATELET ESTIMATE NORMAL
[2020-02-14 13:54] LABS: CLARITY URINE CLOUDY (CLEAR); COLOR URINE YELLOW (YELLOW); KETONES URINE TRACE (NEGATIVE); LEUKOCYTE ESTERASE URINE 3+ (NEGATIVE); NITRITE URINE NEGATIVE (NEGATIVE); OCCULT BLOOD URINE 2+ (NEGATIVE); PROTEIN URINE 3+ (NEGATIVE); SPECIFIC GRAVITY URINE 1.019 (1.005-1.030); UROBILINOGEN URINE 0.2 E.U./dL (0.2-1.0)
[2020-02-14 14:54] LABS: PARTIAL THROMBOPLASTIN TIME 22.6 sec (23.4-31.0); PROTHROMBIN TIME 10.8 sec (9.6-11.0)
[2020-02-14] MEDS ORDERED: CEFTRIAXONE 1 G PREMIX 50 ML IV ONE (16:15)
[2020-02-14] MEDS ORDERED: DEXAMETHASONE 10 MG/ML VIAL IV ONE (18:00)
[2020-02-14] MEDS ORDERED: HYDRALAZINE 20MG/ML VIAL IV PRN (19:45)
[2020-02-14] MEDS ORDERED: DIPHENHYDRAMINE 50MG/ML VIAL IV PRN (19:45)
[2020-02-14] MEDS ORDERED: ONDANSETRON HCL 4MG/2ML INJ IV PRN (19:45)
[2020-02-14] MEDS ORDERED: LORAZEPAM 2MG/ML CPJ IV PRN (19:45)
[2020-02-14] MEDS ORDERED: CLONIDINE 0.1MG TABLET PO PRN (19:45)
[2020-02-14] MEDS ORDERED: GUAIFENESIN 200MG/10ML SUGAR FREE UDC PO PRN (19:45)
[2020-02-14] MEDS ORDERED: MORPHINE SULFATE 2 MG/ML CPJ (NOT FOR IM USE) IV PRN (19:45)
[2020-02-14] MEDS ORDERED: NA PHOS,M-B/NA PHOS,DI-BA ENEMA 118ML PR PRN (19:45)
[2020-02-14] MEDS ORDERED: IPRATROPIUM/ALBUTEROL 0.5-3(2.5)MG/3ML NEB NEB PRN (19:45)
[2020-02-14] MEDS ORDERED: ACETAMINOPHEN 325MG TABLET PO PRN (19:45)
[2020-02-14] MEDS ORDERED: MAGNESIUM/ALUMINUM HYDROXIDE/SIMETHICONE 30ML UDC PO PRN (19:45)
[2020-02-14] MEDS ORDERED: DEXT 5%/0.45% NACL 1000ML 1,000 ML IV SCH (19:45)
[2020-02-14] MEDS ORDERED: DOCUSATE SODIUM 100MG CAPSULE PO PRN (19:45)
[2020-02-14] MEDS ORDERED: HYDROCODONE/ACETAMINOPHEN 10/325MG TABLET PO PRN (19:45)
[2020-02-14] MEDS ORDERED: SODIUM CHLORIDE 0.9% INJ 3ML FLUSH IVF SCH (22:00)
[2020-02-15] VITALS (7 sets, daily range): BP systolic 107–173; BP diastolic 51–96
[2020-02-15 00:34] LABS: CREATINE KINASE MB FRACTION 59.1 ng/mL (0.5-3.6)
[2020-02-15] MEDS: LOSARTAN POTASSIUM 25 MG TABLET PO SCH (10:00)
[2020-02-15] MEDS: TAMSULOSIN HCL 0.4MG SR CAPSULE PO SCH (10:00)
[2020-02-15] MEDS: SODIUM CHLORIDE 0.45% 1,000 ML IV SCH (10:00)
[2020-02-15 10:26] LABS: BASOPHILS % 0.4 % (0.0-2.0); EOSINOPHILS % 0.1 % (0.0-5.0); HEMATOCRIT. 28.9 % (42.0-52.0); HEMOGLOBIN. 9.9 g/dL (14.0-18.0); LYMPHOCYTES % 10.1 % (20.0-50.0); MEAN CORPUSCULAR HEMOGLOBIN 31.9 pg (28.0-32.0); MEAN CORPUSCULAR VOLUME 93.4 fL (80.0-94.0); MEAN PLATELET VOLUME 8.8 fl (7.4-10.4); MONOCYTES % 3.3 % (2.0-8.0); NEUTROPHILS % 86.1 % (40.0-76.0); PLATELET 179 x1000/uL (130-400); RED BLOOD CELL COUNT 3.09 mill/uL (4.7-6.1); RED CELL DISTRIBUTION WIDTH 17.1 % (11.6-14.6)
[2020-02-15 10:58] LABS: T4 FREE 0.89 ng/dL (0.76-1.46)
[2020-02-15] MEDS ORDERED: SODIUM POLYSTYRENE SULFONATE 15 G/60 ML BOT PO SCH (13:00)
[2020-02-15] MEDS: DEXAMETHASONE 4MG/ML 1ML VIAL IV SCH ×2 (13:03→19:01)
[2020-02-15] MEDS: LEVETIRACETAM 500MG PREMIX 100 ML IV SCH ×2 (14:29→21:45)
[2020-02-16] MEDS: SODIUM CHLORIDE 0.45% 1,000 ML IV SCH (01:14)
[2020-02-16] MEDS: DEXAMETHASONE 4MG/ML 1ML VIAL IV SCH ×3 (01:14→12:00)
[2020-02-16 07:14] LABS: HEMATOCRIT. 28.1 % (42.0-52.0); HEMOGLOBIN. 9.2 g/dL (14.0-18.0); MEAN CORPUSCULAR HEMOGLOBIN 30.4 pg (28.0-32.0); MEAN CORPUSCULAR VOLUME 93.1 fL (80.0-94.0); MEAN PLATELET VOLUME 9.4 fl (7.4-10.4); PLATELET 148 x1000/uL (130-400); RED BLOOD CELL COUNT 3.02 mill/uL (4.7-6.1); RED CELL DISTRIBUTION WIDTH 16.9 % (11.6-14.6)
[2020-02-16 08:00] VITALS: BP 138/58
[2020-02-16] MEDS: LOSARTAN POTASSIUM 25 MG TABLET PO SCH (09:19)
[2020-02-16] MEDS: LEVETIRACETAM 500MG PREMIX 100 ML IV SCH (09:19)
[2020-02-16] MEDS: TAMSULOSIN HCL 0.4MG SR CAPSULE PO SCH (09:19)
[2020-02-16 10:51] VITALS: BP 138/58
[2020-02-16] MEDS ORDERED: CLOPIDOGREL 75MG TABLET PO SCH (11:00)
[2020-02-16 12:00] VITALS: BP 142/63
[2020-02-16 17:55] LABS: PLATELET ESTIMATE NORMAL
[2020-02-17] MEDS ORDERED: ASPIRIN 81MG TABLET PO SCH (09:00)
== END 2020-02-16 13:07 | disposition home or self-care (01) | DRG 54 ==
LOC: ER 12:40 → CMPBEDREQ 17:14 → EDBEDREQTM 18:21 → EDBEDREQSVC 18:21 → EDBEDREQTM 18:22 → 6EST 02-15 00:10 → ENRESERV 02-15 00:10 → ER 02-15 02:43
PROVIDERS: ADMIT Internal Medicine; ATTEND Internal Medicine
DX: C79.31 Secondary malignant neoplasm of brain (principal); N17.0 Acute kidney failure with tubular necrosis; M62.82 Rhabdomyolysis; N39.0 Urinary tract infection, site not specified; G93.9 Disorder of brain, unspecified; N18.30 Chronic kidney disease, stage 3 unspecified; D64.9 Anemia, unspecified; E78.5 Hyperlipidemia, unspecified; N40.0 Benign prostatic hyperplasia without lower urinary tract symptoms; W01.0XXA Fall on same level from slipping, tripping and stumbling without subsequent striking against object, initial encounter; E87.5 Hyperkalemia; R33.9 Retention of urine, unspecified; R59.9 Enlarged lymph nodes, unspecified; I12.9 Hypertensive chronic kidney disease with stage 1 through stage 4 chronic kidney disease, or unspecified chronic kidney disease; I25.10 Atherosclerotic heart disease of native coronary artery without angina pectoris; E78.00 Pure hypercholesterolemia, unspecified; Z82.49 Family history of ischemic heart disease and other diseases of the circulatory system; Z85.46 Personal history of malignant neoplasm of prostate; I25.2 Old myocardial infarction; Z90.79 Acquired absence of other genital organ(s); Z91.19 Patient's noncompliance with other medical treatment and regimen; Z95.5 Presence of coronary angioplasty implant and graft; Y93.89 Activity, other specified; Y92.89 Other specified places as the place of occurrence of the external cause; Y99.8 Other external cause status; Z79.82 Long term (current) use of aspirin; Z79.899 Other long term (current) drug therapy; Z79.1 Long term (current) use of non-steroidal anti-inflammatories (NSAID); R10.2 Pelvic and perineal pain
CPT/HCPCS: 36415; 70551; 71045; 72100; 72192; 80048; 80053; 80061; 81003; 82550; 82553; 83036; 83880; 84153; 84439; 84443; 84484; 85025; 85379; 87077; 87186; 93005; 93306; 93970; 97162; 99291; J0696; J1100; J1953; J2270; J2405; G0103

== ENCOUNTER 2020-06-06 11:07 | Emergency (ER) | payer MEDICARE ==
[~2020-06-06] VITALS: Ht 172.7 cm; Wt 77.0 kg
[~2020-06-06 11:07] MED LIST changes: +CLOP-31 PO; -CLOP75TA4 PO
[2020-06-06] MEDS ORDERED: SODIUM CHLORIDE 0.9% 1,000 ML IV ONE (11:30)
[2020-06-06 11:55] LABS: HEMATOCRIT. 33.7 % (42.0-52.0); MEAN CORPUSCULAR HEMOGLOBIN 30.3 pg (28.0-32.0); MEAN CORPUSCULAR VOLUME 93.2 fL (80.0-94.0); MEAN PLATELET VOLUME 8.8 fl (7.4-10.4); PLATELET 204 x1000/uL (130-400); RED BLOOD CELL COUNT 3.61 mill/uL (4.7-6.1); RED CELL DISTRIBUTION WIDTH 16.2 % (11.6-14.6)
[2020-06-06 12:01] LABS: CHLORIDE 116 mEq/L (98-107)
[2020-06-06 12:05] LABS: PROTHROMBIN TIME 10.9 sec (9.6-11.0)
[2020-06-06 12:46] LABS: PLATELET ESTIMATE NORMAL
[2020-06-06 17:58] VITALS: BP 118/86
== END 2020-06-06 19:44 | disposition left against medical advice (07) ==
LOC: ER 11:17 → ENRESERV 17:07 → CANRESERV 17:07 → CANBEDREQ 19:39 → ER 19:44
DX: C71.9 Malignant neoplasm of brain, unspecified (principal); R53.1 Weakness; N17.9 Acute kidney failure, unspecified; R62.7 Adult failure to thrive; D64.9 Anemia, unspecified; Z79.899 Other long term (current) drug therapy
CPT/HCPCS: 36415; 70450; 71045; 80053; 83605; 84145; 84484; 85025; 85610; 87040; 87077; 93005; 96360; 96361; 99291; J7030